=== PATIENT | female | born 1965 | race African-American/Black ===

== ENCOUNTER → 2024-09-12 | Day surgery (SDC) | payer OTHER ==
[~2024-09-12] MED LIST: ALPRAZOLAM1 MG PO; BACLOFEN10 MG PO; BENICAR20 MG PO; CALCIUM500 MG PO; CYMBALTA30 MG PO; MAGNESIUM100 MG PO; METOCLOPRAMIDE HCL 10 MG/2ML VIAL ONE; METOPROLOL SUCC50 MG PO; MIDAZOLAM HCL 2 MG/2 ML VIAL ONE; ONDANSETRON HCL INJ 2MG/ML 2ML 2 MG/ML VIAL ONE; OZEMPIC0.25 MG/02 SQ; PROPOFOL IV EMULSION 10 MG/ML 20 ML VIAL ONE; SYNTHROID175 MCG PO; VITAMIN C1000 M2 PO; VITAMIN D310 MCG PO; VITAMIN K240 MCG PO
[2024-09-12] MEDS: LACTATED RINGER'S 1,000 ML ONE (05:56)
[2024-09-12 07:48] VITALS: BP 144/82; PULSE 82; RESP 17; O2SAT 97
== END | disposition home or self-care (01) ==
LOC: OR 05:32
PROVIDERS: ATTEND Student in an Organized Health Care Education/Training Program
DX: M47.817 Spondylosis without myelopathy or radiculopathy, lumbosacral region (principal); I10 Essential (primary) hypertension; K21.9 Gastro-esophageal reflux disease without esophagitis; F41.8 Other specified anxiety disorders; G47.33 Obstructive sleep apnea (adult) (pediatric); E11.9 Type 2 diabetes mellitus without complications; Z79.85 Long-term (current) use of injectable non-insulin antidiabetic drugs; E66.01 Morbid (severe) obesity due to excess calories; E89.0 Postprocedural hypothyroidism; M19.91 Primary osteoarthritis, unspecified site; Z85.850 Personal history of malignant neoplasm of thyroid; Z01.810 Encounter for preprocedural cardiovascular examination; Z79.899 Other long term (current) drug therapy
CPT/HCPCS: 36415; 64493; 64494 ×2; 82948; 93005; J2704; J7121; 77002; J2250; J2405; J2765